=== PATIENT | male | born 1965 | race Caucasian/White ===

== ENCOUNTER 2018-12-03 11:11 | Emergency (ER) | payer MEDICAID, OTHER ==
[~2018-12-03 11:11] MED LIST: CYCLOBENZAPRINE 10 MG TAB PO SCH; HYDROCODONE/APAP 5/325 TAB PO SCH; LIDOCAINE 4%/MENTHOL 1% PATCH TD SCH
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
[2018-12-03] MEDS ORDERED: ACETAMINOPHEN 500 MG TAB PO ONE (13:59)
[2018-12-03] MEDS ORDERED: LIDOCAINE 4%/MENTHOL 1% PATCH TD ONE (13:59)
[2018-12-03 15:32] VITALS: BP 99/66
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
[2018-12-03] MEDS ORDERED: PATCH REMOVAL 1 EA PATCH TD SCH (21:00)
== END 2018-12-03 16:10 | disposition home or self-care (01) ==
DX: S39.012A Strain of muscle, fascia and tendon of lower back, initial encounter (principal); V13.4XXA Pedal cycle driver injured in collision with car, pick-up truck or van in traffic accident, initial encounter; Y92.480 Sidewalk as the place of occurrence of the external cause
CPT/HCPCS: 96374; J2270